=== PATIENT | male | born 1965 | race Caucasian/White ===

== ENCOUNTER 2020-07-12 15:19 | Outpatient (REF) | payer OTHER, SELFPAY ==
[2020-07-12 16:18] LABS: COVID-19 Test Negative (Negative)
== END 2020-07-12 15:20 | disposition home or self-care (01) ==
LOC: HO.LAB 15:19
PROVIDERS: Visit Provider Internal Medicine
DX: Z20.828 Contact with and (suspected) exposure to other viral communicable diseases (principal)
CPT/HCPCS: 87635

== ENCOUNTER 2021-02-15 19:22 | Outpatient (REF) | payer OTHER, SELFPAY ==
--- NOTE | ~2021-02-15 | MR_ITS ---
EXAMINATION: MR SHOULDER WITHOUT CONTRAST, RIGHT CLINICAL INFORMATION: Right shoulder pain, history of rotator tear. Patient reports right shoulder is stuck , weakness, atrophy, prior surgery 2.5 years ago, and recent injury. COMPARISON: MR right shoulder 12/04/2018. TECHNIQUE: MRI of the shoulder without contrast was performed on a high-field scanner. FINDINGS: ROTATOR CUFF: There has been interval repair of the previously noted distal supraspinatus tendon tear with anchor screws. This results in some artifact and distortion of the very distal supraspinatus tendon. There appears to be seen at least some tendinosis and/or postoperative change of the tendon at the insertion site. Just proximal to the insertion site, there is a linear area of increased T2 signal intensity measuring 8 mm transverse, extending to the bursal surface, which could represent a small partial bursal surface tear versus postoperative change. There is mild distal subscapularis tendinosis. The infraspinatus and teres minor tendons are intact. There is a small subacromial-subdeltoid bursal effusion. No muscle atrophy or fatty infiltration. BICEPS: Normal CORACOACROMIAL ARCH: The undersurface of the acromion is relatively flat with acromioplasty changes. There is mild osteoarthritis of the acromioclavicular joint. LABRUM/CAPSULE: Intermediate signal in the anterior labrum could be related to a prior tear and is not significantly changed in appearance. The superior and posterior labrum are grossly intact but suboptimally evaluated. GLENOHUMERAL JOINT/MARROW: Normal MR/MR shoulder RT wo con IMPRESSION: 1. Postoperative changes of the distal supraspinatus tendon. Possible small partial bursal surface insertional tear as described above. Mild distal subscapularis tendinosis. 2. Mild subacromial-subdeltoid bursitis. 3. Mild osteoarthritis of the acromioclavicular joint. 4. Possible sequela of a prior anterior labral tear, as described above, unchanged in appearance.
== END 2021-02-15 19:23 | disposition home or self-care (01) ==
LOC: HO.MRI 19:22
PROVIDERS: Visit Provider Internal Medicine
DX: M25.511 Pain in right shoulder (principal); Z87.828 Personal history of other (healed) physical injury and trauma
CPT/HCPCS: 73221

== ENCOUNTER → 2021-07-24 08:51 | Outpatient (BNVA) | payer OTHER, SELFPAY | PROVIDERS: PCP Internal Medicine; Referring Provider Internal Medicine; Visit Provider Nurse Practitioner Family ==

== ENCOUNTER 2021-10-10 11:43 | Emergency (ER) | payer OTHER, SELFPAY ==
[2021-10-10 11:45] VITALS: BP 133/87; PULSE 80; RESP 16; TEMP 36.7; O2SAT 99; BMI 36.5
--- NOTE | 2021-10-10 11:47 | ECG_ITS ---
Test Reason : tachychardia Blood Pressure : / mmHG Vent. Rate : 082 BPM Atrial Rate : 082 BPM P-R Int : 140 ms QRS Dur : 080 ms QT Int : 374 ms P-R-T Axes : 019 060 207 degrees QTc Int : 436 ms Normal sinus rhythm ST & T wave abnormality, consider inferolateral ischemia Abnormal ECG When compared to the previous EKG of Lateral ST depressions are more pronounced Referred By: Epifanio Olvera Electronically Signed By:Anselmo Issa
--- NOTE | 2021-10-10 11:49 | ED_ITS ---
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 presented complaining of palpitations, he has history of SVT, he states that heart rate was in the 200 range MD complaint: rapid heart beat and heart racing Onset (ago): minute(s) (30) Duration: constant Severity: severe Arrhythmia history: SVT Associated symptoms: denies other symptoms Treatments prior to arrival: vagal maneuvers Related Data Home Medications Medication Instructions Recorded Confirmed benazepril 40 mg tablet 40 mg PO DAILY 07/24/21 07/24/21 diltiazem HCl 240 mg 240 mg PO DAILY 07/24/21 07/24/21 capsule,extended release 24 hr escitalopram oxalate 10 mg tablet 20 mg PO DAILY tab 07/24/21 07/24/21 hydrochlorothiazide 25 mg tablet 25 mg PO DAILY 07/24/21 07/24/21 Allergies Allergy/AdvReac Type Severity Reaction Status Date / Time morphine [MORPHINE] Allergy Mild HIVES Verified 10/10/21 11:49 Review of Systems Review of Systems: Yes all other systems are reviewed and are negative Constitutional: Constitutional: Reports no additional constitutional complaints ENT: Reports system reviewed and no additional complaints, except as documented Respiratory: Respiratory: Reports no additional respiratory complaints Integumentary/Breasts: Skin/Breast: Reports system reviewed and no additional complaints, except as docu PMFSH Past Medical History Medical History SVT (supraventricular tachycardia) Surgical History History of bowel resection Hx of shoulder surgery Family History Family History Father High blood pressure Mother No problems noted. 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 Exam Vital Signs: Vital Signs: Last Vital Signs Temp 98.0 F 10/10/21 11:45 Pulse 80 10/10/21 11:45 Resp 16 10/10/21 11:45 BP 133/87 10/10/21 11:45 Pulse Ox 99 10/10/21 11:45 BMI result Body Mass Index 36.5 Const: General: cooperative and no acute distress Nutritional Appearance: average body habitus HENMT: Head: Yes normal to inspection Face and sinus: Yes normal facial exam Mouth: Normal oral and palatal mucosa present Neck: Neck: Yes normal visual inspection and Yes full ROM Thyroid: Thyroid normal Chest: Chest palpation & inspection: normal inspection of the chest Resp: Effort & Inspection: normal respiratory effort Auscultation: clear to auscultation bilaterally Cardio: Jugular venous distension: no JVD Rate: regular rate Rhythm: regular rhythm GI: Inspection: Yes normal to inspection Palpation (GI): Soft to palpation, not firm, nontender and no guarding Auscultation: normal bowel sounds Skin: General skin exam: no rashes or lesions noted Course Reevaluation(s) Reevaluation #1: At this time the patient is completely asymptomatic is in sinus rhythm a he has no pain , high sensitive troponin is negative he was to be discharged home MDM - Arrhythmia/Palpitations Lab Data Result diagrams: 10/10/21 11:57 10/10/21 11:57 Labs: Lab Results 10/10/21 10/10/21 10/10/21 Range/Units 11:57 11:57 11:57 WBC 7.6 (4.8-10.8) X10*3/uL RBC 5.72 (4.60-5.80) X10*6/uL Hgb 17.3 (14.0-18.0) g/dl Hct 50.0 (42.0-52.0) % MCV 87.4 (80.0-98.0) fL MCH 30.2 (27.0-33.0) pg MCHC 34.6 (31.0-36.0) g/dl RDW 12.6 (11.0-16.0) % Plt Count 221 (160-400) X10*3/uL MPV 9.5 (9.4-12.4) fL Immature Gran % (Auto) 0.4 (0.0-0.4) % Neut % (Auto) 62.0 (45-73) % Lymph % (Auto) 28.2 (20-40) % Kimball % (Auto) 7.3 (2-11) % Eos % (Auto) 1.6 (0-4) % Baso % (Auto) 0.5 (0-2) % Lymph # (Auto) 2.2 (1.2-4.9) X10*3/uL Kimball # (Auto) 0.6 (0.1-1.2) X10*3/uL Eos # (Auto) 0.1 (0.0-0.4) X10*3/uL Baso # (Auto) 0.0 (0.0-0.2) X10*3/uL Abs Immat Gran (auto) 0.03 (0.00-0.03) X10*3/uL Absolute Neuts (auto) 4.7 (2.0-8.3) x10*3/uL Absolute Nucleated RBC 0.000 (0.0-0.012) X10*3/uL Nucleated RBC % (auto) 0.0 (0.0-0.2) /100WBC Sodium 144 (135-145) mmol/L Potassium 3.5 (3.3-5.1) mmol/L Chloride 109 H (96-108) mmol/L Carbon Dioxide 25 (22-29) mmol/L Anion Gap 14 (12-20) BUN 21 H (9-16) mg/dL Creatinine 1.29 (0.5-1.4) mg/dL Estim Creat Clear Calc 78.3 Estimated GFR 58 Random Glucose 116 H (60-115) mg/dL Calcium 9.8 (8.4-10.2) mg/dL Total Bilirubin 1.1 H (0.0-1.0) mg/dL AST 21 (5-37) U/L ALT 29 (0-40) U/L Alkaline Phosphatase 89 (39-117) U/L Troponin I High Sens 7.3 (<3.5-35.0) ng/L Total Protein 7.0 (6.5-8.0) g/dL Albumin 4.4 (3.5-5.0) g/dL ECG Data Attestation: I personally reviewed and interpreted this ECG as follows: ECG interpretation date: 10/10/21 ECG interpretation time: 11:51 Interpretation: NSR 82 St depression 1 mm V3-v5 unchanged from January 19 2018 Discharge Plan Discharge Clinical Impression: Heart palpitations Patient Disposition: Home, Self-Care Instructions: Heart Palpitations (ED) Prescriptions: No Action diltiazem HCl 240 mg capsule,extended release 24hr 240 mg PO DAILY RF: 0 escitalopram oxalate 10 mg tablet 20 mg PO DAILY RF: 0 hydrochlorothiazide 25 mg tablet 25 mg PO DAILY RF: 0 benazepril 40 mg tablet 40 mg PO DAILY RF: 0 Referrals: Gely Raymond MD [Primary Care Provider] - 2 days
[2021-10-10 12:03] LABS: MANUAL DIFF FLAG NO
[2021-10-10 12:07] LABS: Basophils Percent Auto 0.5 % (0-2); Eosinophils Absolute Auto 0.1 X10*3/uL (0.0-0.4); Eosinophils Percent Auto 1.6 % (0-4); Hemoglobin 17.3 g/dl (14.0-18.0); Imm Gran Abs Auto 0.03 X10*3/uL (0.00-0.03); Imm Gran Pct Auto 0.4 % (0.0-0.4); Lymphocytes Absolute Auto 2.2 X10*3/uL (1.2-4.9); Lymphocytes Percent Auto 28.2 % (20-40); Mean Corpuscular HGB Conc 34.6 g/dl (31.0-36.0); Mean Corpuscular Hemoglobin 30.2 pg (27.0-33.0); Mean Corpuscular Volume 87.4 fL (80.0-98.0); Mean Platelet Volume 9.5 fL (9.4-12.4); Monocytes Absolute Auto 0.6 X10*3/uL (0.1-1.2); Monocytes Percent Auto 7.3 % (2-11); Neutrophils Absolute Auto 4.7 x10*3/uL (2.0-8.3); Platelet Count 221 X10*3/uL (160-400); Red Blood Count 5.72 X10*6/uL (4.60-5.80); Red Cell Distribution Width 12.6 % (11.0-16.0); White Blood Count 7.6 X10*3/uL (4.8-10.8)
[2021-10-10] MEDS: 0.9 % Sodium Chloride 1,000 ML 999 ML IVCONT (12:07)
[2021-10-10 12:29] LABS: Alanine Aminotransferase 29 U/L (0-40); Albumin Level 4.4 g/dL (3.5-5.0); Alkaline Phosphatase 89 U/L (39-117); Anion Gap 14 (12-20); Aspartate Amino Transferase 21 U/L (5-37); Bilirubin Total 1.1 mg/dL (0.0-1.0); Blood Urea Nitrogen 21 mg/dL (9-16); Calcium 9.8 mg/dL (8.4-10.2); Carbon Dioxide 25 mmol/L (22-29); Chloride 109 mmol/L (96-108); Creatinine Clr Calc Pharmacy 78.3; Estimated Glomerular Filt Rate 58; Glucose Random 116 mg/dL (60-115); Potassium 3.5 mmol/L (3.3-5.1); Sodium 144 mmol/L (135-145)
[2021-10-10 12:32] LABS: Troponin-I High Sensitivity 7.3 ng/L (<3.5-35.0)
== END 2021-10-10 13:51 | disposition home or self-care (01) ==
PROVIDERS: Emergency Provider Emergency Medicine; PCP Internal Medicine
DX: R00.2 Palpitations (principal); I47.1 Supraventricular tachycardia; Z79.899 Other long term (current) drug therapy
CPT/HCPCS: 36415; 80053; 84484; 85025; 93005; 96360; 99283; 99284

== ENCOUNTER → 2021-12-02 19:47 | Outpatient (REF) | payer OTHER, SELFPAY | LOC: HO.SL 19:47 | PROVIDERS: Visit Provider Nurse Practitioner Family | DX: G47.9 Sleep disorder, unspecified (principal); R06.83 Snoring; G47.19 Other hypersomnia | CPT/HCPCS: 95810 ==

== ENCOUNTER 2021-12-13 14:16 | Outpatient (REF) | payer OTHER, SELFPAY ==
[2021-12-13 14:44] LABS: MANUAL DIFF FLAG NO
[2021-12-13 15:20] LABS: Appearance Urine CLEAR; Color Urine YELLOW; Glucose Urine UA NEG (NEG); Leukocyte Esterase Urine NEG (NEG); Nitrite Urine NEG (NEG); Urine Blood NEG (NEG); Urine Ketones NEG (NEG); Urine Protein TRACE MG/DL (NEG-TRACE)
[2021-12-13 15:23] LABS: Basophils Percent Auto 0.5 % (0-2); Eosinophils Absolute Auto 0.1 X10*3/uL (0.0-0.4); Eosinophils Percent Auto 1.7 % (0-4); Hematocrit 48.9 % (42.0-52.0); Hemoglobin 16.3 g/dl (14.0-18.0); Imm Gran Abs Auto 0.04 X10*3/uL (0.00-0.03); Imm Gran Pct Auto 0.5 % (0.0-0.4); Lymphocytes Absolute Auto 2.3 X10*3/uL (1.2-4.9); Mean Corpuscular HGB Conc 33.3 g/dl (31.0-36.0); Mean Corpuscular Hemoglobin 30.1 pg (27.0-33.0); Mean Corpuscular Volume 90.4 fL (80.0-98.0); Monocytes Absolute Auto 0.6 X10*3/uL (0.1-1.2); Neutrophils Absolute Auto 4.9 x10*3/uL (2.0-8.3); Neutrophils Percent Auto 61.3 % (45-73); Platelet Count 250 X10*3/uL (160-400); Red Blood Count 5.41 X10*6/uL (4.60-5.80); Red Cell Distribution Width 12.7 % (11.0-16.0); White Blood Count 8.1 X10*3/uL (4.8-10.8)
[2021-12-13 16:00] LABS: Alanine Aminotransferase 26 U/L (0-40); Albumin Level 4.3 g/dL (3.5-5.0); Alkaline Phosphatase 77 U/L (39-117); Anion Gap 13 (12-20); Aspartate Amino Transferase 19 U/L (5-37); Bilirubin Total 1.4 mg/dL (0.0-1.0); Blood Urea Nitrogen 19 mg/dL (9-16); Calcium 9.7 mg/dL (8.4-10.2); Carbon Dioxide 27 mmol/L (22-29); Chloride 106 mmol/L (96-108); Cholesterol 258 mg/dL; Estimated Glomerular Filt Rate 58; Glucose Random 94 mg/dL (60-115); HDL Cholesterol 46 mg/dL; LDL Cholesterol Calculated 178 mg/dl; Potassium 4.4 mmol/L (3.3-5.1); Sodium 142 mmol/L (135-145); Total Protein 6.5 g/dL (6.5-8.0); Triglycerides 174 mg/dL
[2021-12-13 16:10] LABS: Prostate Specific Antigen 1.37 ng/mL (<0.05-4.0)
[2021-12-14 07:59] LABS: Hepatitis B Surface Antigen Negative (Negative)
[2021-12-14 10:03] LABS: HBS Num1 > 1000.00 mIU/mL (0-7.99); ~Hepatitis B Surface Antibody REACTIVE (Nonreactive)
[2021-12-14 13:24] LABS: HBc Num2 9.64 S/CO
[2021-12-14 13:25] LABS: HBc Num3 9.89 S/CO; Hepatitis B Core Antibody Reactive (Nonreactive)
== END 2021-12-13 14:17 | disposition home or self-care (01) ==
LOC: HO.LAB 14:16
PROVIDERS: PCP Internal Medicine; Visit Provider Physician Assistant
DX: I10 Essential (primary) hypertension (principal); R76.8 Other specified abnormal immunological findings in serum; Z12.5 Encounter for screening for malignant neoplasm of prostate
CPT/HCPCS: 36415; 80053; 80061; 81003; 84153; 84443; 85025; 86704; 86706; 87340

== ENCOUNTER 2022-01-16 07:10 | Outpatient (REF) | payer OTHER, SELFPAY ==
[2022-01-16 07:43] LABS: COVID-19 Test Negative (Negative); IDNOW Serial# 16C4AD1C
== END 2022-01-16 07:11 | disposition home or self-care (01) ==
LOC: HO.LAB 07:10
PROVIDERS: PCP Internal Medicine; Visit Provider Emergency Medicine
DX: Z20.822 Contact with and (suspected) exposure to COVID-19 (principal)
CPT/HCPCS: 87635

== ENCOUNTER → 2022-01-28 15:00 | Outpatient (BNVA) | payer OTHER, SELFPAY | PROVIDERS: PCP Internal Medicine; Visit Provider Nurse Practitioner Family | DX: R06.83 Snoring (principal) ==

== ENCOUNTER 2024-07-01 11:36 | Emergency (ER) | payer OTHER, SELFPAY ==
--- NOTE | ~2024-07-01 | CT_ITS ---
EXAMINATION: CT ABDOMEN AND PELVIS WITH CONTRAST CLINICAL INFORMATION: Right lower quadrant and right flank pain. COMPARISON: None available. TECHNIQUE: Multidetector volumetric images were obtained from the superior aspect of the liver through the pubic symphysis following administration 85 mL of Omnipaque 350 intravenous contrast. Sagittal and coronal reformatted images were obtained on the technologist's workstation. Oral contrast: No This CT examination was performed using dose optimization techniques as appropriate, variously including the following: *Automated exposure control *Adjustment of mA and/or kV according to patient size (this includes techniques or standardized protocols for targeted exams where dose is matched to indication/reason for exam; i.e. extremities or head) *Use of iterative reconstruction technique DLP: 788 mGy-cm FINDINGS: LUNG BASES: The visualized lung bases are unremarkable. LIVER, GALLBLADDER, AND BILIARY TREE: The liver is normal in size, shape, and attenuation. There are multiple small bilateral hepatic hypodensities, the largest of which is in the periphery of the right hepatic lobe measuring up to 1.0 cm and consistent with a simple cyst. The additional hypodensities are [id number]-characterize, however, statistically likely represent additional cysts. No enhancing parenchymal lesion. No biliary ductal dilatation is present. Cholelithiasis. No gallbladder wall thickening or pericholecystic free fluid to suggest acute cholecystitis. PANCREAS: Unremarkable. SPLEEN: Unremarkable. ADRENAL GLANDS: Unremarkable. KIDNEYS AND URETERS: The kidneys are normal in size, shape, and attenuation. No hydronephrosis, hydroureter, or calculi seen. Simple-appearing right upper pole renal cyst measuring up to 1.2 cm. Additional right renal subcentimeter hypodensity, lfp-dimuc-lz-characterize. This also likely represents a simple cyst. Findings are not clinically significant and no dedicated follow-up imaging is recommended. No enhancing renal parenchymal lesion. No perinephric stranding. BLADDER: Unremarkable. No wall thickening or inflammatory change. No calcification. GASTROINTESTINAL TRACT: No small or large bowel obstruction. Sigmoid diverticulosis without evidence of acute diverticulitis. No bowel wall thickening or inflammatory change. Unremarkable appendix. PERITONEAL CAVITY: No intraabdominal free air or free fluid. ABDOMINAL WALL: No significant hernia is appreciated. LYMPH NODES: No lymphadenopathy. VASCULAR: Unremarkable. PELVIC VISCERA: Small prostate calcifications. OSSEOUS STRUCTURES: No acute fracture or subluxation. No concerning lytic or blastic osseous lesion. Degenerative disc disease and facet arthropathy throughout the visualized spine, most prominent at L4-L5 and L5-S1. CT/CT abdomen pelvis w IV con IMPRESSION: 1. No hydronephrosis or nephrolithiasis. Unremarkable urinary bladder. 2. Diverticulosis without evidence of acute diverticulitis. No small or large bowel obstruction. Unremarkable appendix. 3. No intra-abdominal mass, lymphadenopathy, or ascites. 4. Cholelithiasis without evidence of acute cholecystitis. No intrahepatic or extrahepatic biliary ductal dilatation. 5. Degenerative disc disease and facet arthropathy throughout the visualized spine, most prominent at L4-L5 and L5-S1. Fleischner guidelines were followed. Electronically signed by: Demarcus Connell MD 07/01/2024 02:29 PM EDT
[2024-07-01 11:48] VITALS: BP 150/86; PULSE 68; RESP 18; TEMP 37.3; O2SAT 97; BMI 34.5
[2024-07-01 11:52] VITALS: BP 150/86; PULSE 68; RESP 18; TEMP 37.3; O2SAT 97
--- NOTE | 2024-07-01 11:58 | ECG_ITS ---
Test Reason : ABD PAIN Blood Pressure : / mmHG Vent. Rate : 059 BPM Atrial Rate : 059 BPM P-R Int : 134 ms QRS Dur : 082 ms QT Int : 410 ms P-R-T Axes : 025 040 032 degrees QTc Int : 405 ms Sinus bradycardia Otherwise normal ECG When compared with ECG of 10-OCT-2021 11:44, ST no longer depressed in Anterolateral leads T wave inversion no longer evident in Lateral leads Referred By: Cherrie Mixon Electronically Signed By:JORDY BLANKENSHIP MD
[2024-07-01 12:01] LABS: Appearance Urine Clear; Color Urine Yellow; Glucose Urine UA Negative (Negative); Leukocyte Esterase Urine Negative (Negative); Nitrite Urine Negative (Negative); Urine Blood Negative (Negative); Urine Ketones Negative (Negative); Urine Protein Negative (Neg-Trace)
[2024-07-01 12:10] LABS: Bacteria Urine None Seen (None Seen); Hyaline Casts Urine 0-2 /LPF (0-2); RBC Urine 0-2 /HPF (0-2); Squamous Epithelial Cell Urine 0-2 /HPF (0-2); WBC Urine 0-5 /HPF (0-5)
[2024-07-01 12:27] LABS: MANUAL DIFF FLAG NO
[2024-07-01 12:29] LABS: Basophils Percent Auto 0.5 % (0-2); Eosinophils Absolute Auto 0.1 X10*3/uL (0.0-0.4); Eosinophils Percent Auto 1.9 % (0-4); Hematocrit 46.8 % (42.0-52.0); Hemoglobin 16.2 g/dl (14.0-18.0); Imm Gran Abs Auto 0.02 X10*3/uL (0.00-0.03); Imm Gran Pct Auto 0.3 % (0.0-0.4); Lymphocytes Absolute Auto 1.7 X10*3/uL (1.2-4.9); Mean Corpuscular HGB Conc 34.6 g/dl (31.0-36.0); Mean Corpuscular Hemoglobin 30.7 pg (27.0-33.0); Mean Corpuscular Volume 88.6 fL (80.0-98.0); Mean Platelet Volume 9.1 fL (9.4-12.4); Monocytes Absolute Auto 0.4 X10*3/uL (0.1-1.2); Monocytes Percent Auto 7.3 % (2-11); Neutrophils Absolute Auto 3.6 x10*3/uL (2.0-8.3); Platelet Count 210 X10*3/uL (160-400); Red Blood Count 5.28 X10*6/uL (4.60-5.80); Red Cell Distribution Width 12.6 % (11.0-16.0); White Blood Count 5.9 X10*3/uL (4.8-10.8)
--- NOTE | 2024-07-01 12:30 | ED_ITS ---
HPI - Abdominal Pain General Chief Complaint: Abdominal Pain Stated Complaint: Abd pain Time Seen by Provider: 07/01/24 11:43 Source: patient and old records reviewed Mode of arrival: ambulatory Limitations: no limitations History of Present Illness ED Provider: MADAN DIEZ narrative: 59 yo male with PMH of HTN, SVT, prior intestinal resection has kwown ventral hernia here with 12 days of R sided abdominal pain no associated dysuria, fevers, diarrhea, n/v. He is eating. He notes today he feels sick and weak which is new. He denies any other symptoms just feels sick. No prior renal colic or diverticulitis MD elicited complaint: abdominal pain Pertinent past history: other (intestinal resection) Onset (ago): day(s) (12) Pain Consistency: intermittent Location: R flank Severity: moderate Quality: aching Radiation: none Migration to: no migration Exacerbating factors: movement Relieving factors: nothing Associated symptoms: other (fatigue, malaise) Related Data Home Medications ?Medication ?Instructions ?Recorded ?Confirmed benazepril 40 mg tablet 40 mg PO DAILY 07/24/21 01/28/22 diltiazem HCl 240 mg 240 mg PO DAILY 07/24/21 01/28/22 capsule,extended release 24 hr escitalopram oxalate 10 mg tablet 20 mg PO DAILY 07/24/21 01/28/22 hydrochlorothiazide 25 mg tablet 25 mg PO DAILY 07/24/21 01/28/22 Allergies Allergy/AdvReac Type Severity Reaction Status Date / Time morphine [MORPHINE] Allergy Mild HIVES Verified 07/01/24 11:49 Review of Systems Review of Systems Constitutional : No Weight loss, No Fever, No Chills, pos fatigue ENT/Mouth : No sore throat, No Rhinorrhea Eyes: No Swelling, No Redness Cardiovascular : No Chest Pain, No SOB, NoEdema Respiratory : No Cough, No Sputum, No Wheezing Gastrointestinal : no Nausea, no Vomiting, noDiarrhea, positive abdominal Pain, No Hematochezia, No Melena Genitourinary : No Dysuria, No Urinary Frequency, No Hematuria, No Urgency Musculoskeletal : No joint pain, No Myalgias, No Joint Swelling Skin : No Skin Lesions, No rash Neuro : No Weakness, No Numbness, No Dizziness, No Headache All other systems reviewed and are negative. [facility] Past Medical History Attestation statement: The following information was validated with the patient. Source: old records reviewed Medical History SVT (supraventricular tachycardia) Surgical History History of bowel resection Hx of shoulder surgery Family History Family History Father High blood pressure Mother No problems noted. 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 Oriented X3. No acute distress. Eyes: Pupils equal, round and reactive to light. ENT: Pharynx normal. Neck: Normal inspection. Neck supple. CVS: Normal heart rate and rhythm. Pulses normal. Respiratory: No respiratory distress. Breath sounds normal. Abdomen: Soft and moderate RLQ ttp no rebound. Skin: Skin warm and dry. Normal skin color. Normal skin turgor. Extremities: No lower extremity edema. No calf ttp Neuro: Oriented X 3. No motor deficit. No sensory deficit. Medical Decision Making Medical Decision Making MDM Narrative: 59 yo male with PMH of HTN, SVT, prior intestinal resection here with c/o RLQ pain x 12 days now worsening with fatigue no other associated GI or symptoms at this time will need labs UA, CT scan to evaluate for mass, diverticulitis, renal colic. He declines pain medications. Given the fatigue he is out in the [place] a lot I am going to order lyme testing. Differential Diagnosis Differential Diagnoses: The differential diagnosis associated with the presentation includes mass, diverticulitis, renal colic, has no RUQ pain to suggest biliary colic Admission/Observation Consideration of admission/observation: Escalation of care including admission/observation considered no acute findings with 12 days of symptoms Consult Healthcare Provider no abnormality per radiology and surgery review on CT scan Lab Data MDM Lab Attestation statement: I reviewed the patient's lab results. 07/01/24 12:22 07/01/24 12:21 Labs: Lab Results 07/01/24 07/01/24 07/01/24 Range/Units 11:54 12:21 12:22 WBC 5.9 (4.8-10.8) X10*3/uL RBC 5.28 (4.60-5.80) X10*6/uL Hgb 16.2 (14.0-18.0) g/dl Hct 46.8 (42.0-52.0) % MCV 88.6 (80.0-98.0) fL MCH 30.7 (27.0-33.0) pg MCHC 34.6 (31.0-36.0) g/dl RDW 12.6 (11.0-16.0) % Plt Count 210 (160-400) X10*3/uL MPV 9.1 L (9.4-12.4) fL Immature Gran % (Auto) 0.3 (0.0-0.4) % Neut % (Auto) 61.0 (45-73) % Lymph % (Auto) 29.0 (20-40) % Duc[place]ne % (Auto) 7.3 (2-11) % Eos % (Auto) 1.9 (0-4) % Baso % (Auto) 0.5 (0-2) % Lymph # (Auto) 1.7 (1.2-4.9) X10*3/uL Duc[place]ne # (Auto) 0.4 (0.1-1.2) X10*3/uL Eos # (Auto) 0.1 (0.0-0.4) X10*3/uL Baso # (Auto) 0.0 (0.0-0.2) X10*3/uL Abs Immat Gran (auto) 0.02 (0.00-0.03) X10*3/uL Absolute Neuts (auto) 3.6 (2.0-8.3) x10*3/uL Absolute Nucleated RBC 0.000 (0.0-0.012) X10*3/uL Nucleated RBC % (auto) 0.0 (0.0-0.2) /100WBC Sodium 142 (135-145) mmol/L Potassium 3.7 (3.3-5.1) mmol/L Chloride 106 (96-108) mmol/L Carbon Dioxide 29 (22-29) mmol/L Anion Gap 11 L (12-20) BUN 20 H (9-16) mg/dL Creatinine 1.37 (0.5-1.4) mg/dL Estim Creat Clear Calc 69.1 Estimated GFR 54 Random Glucose 106 (60-115) mg/dL Calcium 9.6 (8.4-10.2) mg/dL Magnesium 2.4 (1.6-2.6) mg/dL Total Bilirubin 1.2 H (0.0-1.0) mg/dL Direct Bilirubin 0.3 (0.0-0.5) mg/dL AST 15 (5-37) U/L ALT 19 (0-40) U/L Alkaline Phosphatase 78 (39-117) U/L Troponin I High Sens 4.4 (<3.5-35.0) ng/L Total Protein 6.8 (6.5-8.0) g/dL Albumin 4.5 (3.5-5.0) g/dL Lipase 34 (8-78) U/L Urine Color Yellow Urine Appearance Clear Urine pH 7.0 (5.0-9.0) Ur Specific [place] 1.020 (1.005-1.025) Urine Protein Negative (Neg-Trace) mg/dL Urine Glucose (UA) Negative (Negative) mg/dL Urine Ketones Negative (Negative) mg/dL Urine Blood Negative (Negative) Urine Nitrite Negative (Negative) Ur Leukocyte Esterase Negative (Negative) Urine RBC 0-2 (0-2) /HPF Urine WBC 0-5 (0-5) /HPF Ur Squamous Epith Cells 0-2 (0-2) /HPF Urine Bacteria None Seen (None Seen) Hyaline Casts 0-2 (0-2) /LPF Influenza Type A (PCR) NEGATIVE (Negative) Influenza Type B (PCR) NEGATIVE (Negative) RSV RNA Qual (PCR) NEGATIVE (Negative) SARS-CoV-2 RNA (RT-PCR) NEGATIVE (Negative) Independent Interpretation I performed an independent interpretation of an: EKG and CT Scan (no acute infection) Interpretation: Rate: 59 Rhythm: sinus bradycardia Chuckey: normal Normal P waves. Normal FREDERICK. Normal QRS complex. ST T wave : normal no SEBAS qTC: 405 prior studies: no acute ischemia The study has been interpreted contemporaneously by me. . Radiology Impression Discussion of test interpretation with radiology: I have reviewed the radiologist's reading. External Record Review External record reviewed: Outpatient record Medications Administered Discontinued Medications Generic Name Dose Route Start Last Admin Trade Name Nikolai PRN Reason Stop Dose Admin Iohexol 85 ml 07/01/24 13:11 07/01/24 13:11 Iohexol 350 Mg/Ml 100 Ml Infus..Btl IV 07/01/24 13:12 85 ml ONCE ONE Administration Discharge Plan Discharge Clinical Impression: Abdominal pain Patient Disposition: Home, Self-Care Instructions: Acute Abdominal Pain (ED) Additional Instructions: labs and urine reassuring lyme study pending return for any worsening symptoms or concerns follow up with your doctor if not better CT/CT abdomen pelvis w IV con IMPRESSION: 1. No hydronephrosis or nephrolithiasis. Unremarkable urinary bladder. 2. Diverticulosis without evidence of acute diverticulitis. No small or large bowel obstruction. Unremarkable appendix. 3. No intra-abdominal mass, lymphadenopathy, or ascites. 4. Cholelithiasis without evidence of acute cholecystitis. No intrahepatic or extrahepatic biliary ductal dilatation. 5. Degenerative disc disease and facet arthropathy throughout the visualized spine, most prominent at L4-L5 and L5-S1. Fleischner guidelines were followed. Electronically signed by: Demarcus Connell MD 07/01/2024 02:29 PM EDT Prescriptions: No Action diltiazem HCl 240 mg capsule,extended release 24hr 240 mg PO DAILY escitalopram oxalate 10 mg tablet 20 mg PO DAILY hydrochlorothiazide 25 mg tablet 25 mg PO DAILY benazepril 40 mg tablet 40 mg PO DAILY Stand Alone Forms: Work/School Release Print Language: Maori
[2024-07-01 12:43] LABS: Alanine Aminotransferase 19 U/L (0-40); Albumin Level 4.5 g/dL (3.5-5.0); Alkaline Phosphatase 78 U/L (39-117); Anion Gap 11 (12-20); Aspartate Amino Transferase 15 U/L (5-37); Bilirubin Direct 0.3 mg/dL (0.0-0.5); Bilirubin Total 1.2 mg/dL (0.0-1.0); Blood Urea Nitrogen 20 mg/dL (9-16); Calcium 9.6 mg/dL (8.4-10.2); Carbon Dioxide 29 mmol/L (22-29); Chloride 106 mmol/L (96-108); Creatinine Clr Calc Pharmacy 69.1; Estimated Glomerular Filt Rate 54; Glucose Random 106 mg/dL (60-115); Lipase 34 U/L (8-78); Magnesium 2.4 mg/dL (1.6-2.6); Potassium 3.7 mmol/L (3.3-5.1); Sodium 142 mmol/L (135-145); Total Protein 6.8 g/dL (6.5-8.0)
[2024-07-01 12:49] LABS: Troponin-I High Sensitivity 4.4 ng/L (<3.5-35.0)
[2024-07-01] MEDS: iohexoL 350 MG/ML 100 ML INFUS..BTL 85 ML IV (13:11)
[2024-07-01 13:15] LABS: Influenza A PCR NEGATIVE (Negative); Influenza B PCR NEGATIVE (Negative); Resp Syncy Virus RNA Qual PCR NEGATIVE (Negative); SARS COV2 PCR INHOUSE NEGATIVE (Negative)
[2024-07-01 15:42] VITALS: BP 136/81; PULSE 62; RESP 18; TEMP 37; O2SAT 95
[2024-07-03 03:18] LABS: Lyme Abs Screen <0.90 index
== END 2024-07-01 15:43 | disposition home or self-care (01) ==
PROVIDERS: Emergency Provider Emergency Medicine; PCP Internal Medicine
DX: R10.31 Right lower quadrant pain (principal); R10.2 Pelvic and perineal pain; R00.1 Bradycardia, unspecified; R53.83 Other fatigue; I10 Essential (primary) hypertension; Z79.899 Other long term (current) drug therapy; Z03.818 Encounter for observation for suspected exposure to other biological agents ruled out
CPT/HCPCS: 0241U; 74177; 80048; 80076; 81001; 83690; 83735; 84484; 85025; 86617; 86618; 93005; 99284; Q9967

== ENCOUNTER → 2024-07-01 11:58 | Outpatient (BNV) | payer OTHER, SELFPAY | PROVIDERS: Emergency Provider Emergency Medicine; PCP Internal Medicine; Visit Provider Internal Medicine Cardiovascular Disease | DX: R00.1 Bradycardia, unspecified (principal) | CPT/HCPCS: 93010 ==

== ENCOUNTER 2024-12-21 10:59 | Outpatient (REF) | payer OTHER, SELFPAY ==
--- NOTE | ~2024-12-21 | XR_ITS ---
CLINICAL HISTORY: PAIN IN LEFT HIP 2 view, pelvis and left hip Comparison: None Findings: No acute fracture. No dislocation. Early degenerative changes. No erosions. The soft tissues are radiographically unremarkable. IMPRESSION: No acute findings. This document has been electronically signed by: Fadumo Monteiro MD on 12/21/2024 18:09:16
[2024-12-21 12:22] LABS: Cholesterol 177 mg/dL (<200); HDL Cholesterol 47 mg/dL (>40); LDL Cholesterol Calculated 102 mg/dL (<100); Triglycerides 141 mg/dL (<150)
[2024-12-21 12:44] LABS: Prostate Specific Antigen 3.07 ng/mL (<0.05-4.0)
--- OUTSIDE RECORDS SUMMARY | 2024-12-21 13:16 | XMS_ITS | Patient Health Record ---
Author Organization [facility] Jackelin teddy [place] Address [address] [place] [address] Care Team Providers Care Market Relationship Manager Name Role Phone Segundo BURROUGHS, Tonio Primary Care Provider Lakeisha reinaAiden Gasca Unavailable [phone] Allergies Allergen (clinical drug ingredient) Drug/Non Drug Allergy documented on EMR Reaction Allergy Type Onset Date Status morphine Morphine Sulfate hives Drug Allergy Active Reason For Referral No Information Medications Medication SIG (Take, Route, Frequency, Duration) Notes Start Date End Date Status Viagra 100 MG 1 tablet as needed Orally Once a day for 30 day(s) Not-Taking KlonoPIN 0.5 MG 1 tablet at bedtime Orally Once a day Not-Taking Custom Orthotics as directed A ctive Voltaren 1 % as directed Externally apply bid to heel for 30 days 11/27/2020 Active Night Splint AFO - L1930 as directed 11/01/2019 Active PreserVision AREDS - as directed Orally Active Work Note . . . patient unable t o work on 06/17/20 due to cortisone injection Active Work Note . . . patient had cortisone injectiontoday and is unable to return to work until 11/05/19 11/01/2019 Active dilTIAZem HCl ER Beads 240 MG 1 capsule Orally Once a day for 30 day(s) Active amLODIPine Besylate 5 MG 1 tablet Orally Once a day for 30 day(s) Not-Taking Benazepril HCl 40 MG 1 tablet Orally Onc e a day for 30 day(s) Active Multivitamin Adult - as directed Orally Not-Taking hydroCHLOROthiazide 25 MG as directed Orally Active Escitalopram Oxalate 10 MG 1 tablet Oral ly Once a day for 30 day(s) Active Social History Tobacco Use: Social History Observation Description Date Details (start date - stop date) Never Smoker NA - NA Tobacco Use/Smoking Question Answer Notes Are you a: nonsmoker Additional Findings: Tobacco Non-User Current no n-smoker Alcohol Screen Question Answer Notes Did you have a drink containing alcohol in the p ast year? Yes Points 0 Interpretation Negative Tobacco use other than smoking: Question Answer Notes Are you an other tobacco user? 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 Plan Of Treatment Pending Test Test Name Order Date X ray : Foot, left 3V 11/01/2019 [id number], [id number], JOINT/BURSA 0 11/29/2019 [id number] TENDON SHEATH/LIGAMENT 0 06/16/2020 [id number] TENDON SHEATH/LIGAMENT 0 10/12/2020 [id number] TENDON SHEATH/LIGAMENT 0 11/01/2019 Insurance Providers Payer Name Payer Address Payer Phone Subscriber Number Group Number Insured Name Patient Relationship to Insured Coverage Start Date Coverage End Date [facility] Plan [address] [place] [id number] Coy Beck Self - patient is the insured Medical (General) History Medical History History ICD Code High blood pressure Anxiety hyperlipidemia Back pain gi bleed Sleep apnea Macular degeneration Surgical History Surgery Date(Month/Year) intestinal surgery-resection rotator cuff tear repair 2018
== END 2024-12-21 11:00 | disposition home or self-care (01) ==
LOC: HO.XRAY 10:59
PROVIDERS: PCP Internal Medicine; Visit Provider Physician Assistant Medical
DX: E78.5 Hyperlipidemia, unspecified (principal); M25.552 Pain in left hip; N40.0 Benign prostatic hyperplasia without lower urinary tract symptoms; Z12.5 Encounter for screening for malignant neoplasm of prostate
CPT/HCPCS: 36415; 73501; 80061; 84153

== ENCOUNTER → 2024-12-21 11:05 | Outpatient (BNV) | payer OTHER, SELFPAY | PROVIDERS: PCP Internal Medicine; Visit Provider Specialist | DX: M25.552 Pain in left hip (principal) | CPT/HCPCS: 73501 ==